=== PATIENT | female | born 1960 | race Hispanic/Latino ===

== ENCOUNTER → 2025-05-09 | Outpatient (REF) | payer OTHER ==
[~2025-05-09] MED LIST: ASPIRIN81 MG PO; JARDIANCE25 MG PO; LIPITOR10 MG PO; LOSARTAN POTAS100 MG PO; METFORMIN HCL500 MG PO
== END ==
LOC: RAD 11:40 → EDSTATUS 05-17 10:30
PROVIDERS: ATTEND Internal Medicine Gastroenterology
DX: Z01.810 Encounter for preprocedural cardiovascular examination (principal); Z12.11 Encounter for screening for malignant neoplasm of colon
CPT/HCPCS: 93005